=== PATIENT | female | born 1965 | race African-American/Black ===

== ENCOUNTER 2018-12-24 17:10 | Emergency (ER) | payer OTHER ==
[~2018-12-24] VITALS: Ht 172.7 cm; Wt 59.0 kg
--- NOTE | 2018-12-24 17:18 | NUR ---
CAME IN FOR DIARRHEA x 5 DAYS, RECENTLY W SMALL INTESTINAL BACTERIAL GROWTH (06/2018), SENT BY PMD FOR STOOL EXAM (POSSIBLE C.DIFFICILE) ALSO FOR CBC, CMP, CRP AND MAG. TO ER BED 2, HOOKED TO MONITOR, CHANGED TO GOWN, PROVIDED W WARM BLANKET, AWAITING MD CARRASQUILLO.
--- NOTE | 2018-12-24 17:32 | NUR ---
MIGUEL ANGEL [place] AT BEDSIDE
--- NOTE | 2018-12-24 17:36 | NUR ---
NS 1L STARTED AT 173-END TIME 1834, ORDERED VERBALLY
[2018-12-24 17:50] LABS: BASOPHILS % (AUTO) 0.2 % (0.0-2.0); HEMATOCRIT 36 % (33-45); HEMOGLOBIN 11.3 g/dL (11.5-14.8); LYMPHOCYTES # (AUTO) 0.8 /CMM (0.8-4.8); LYMPHOCYTES % (AUTO) 10.5 % (20.0-44.0); MEAN CORPUSCULAR HGB CONC 32 g/dl (31.0-36.0); MEAN CORPUSCULAR VOLUME 77 fL (82-100); MONOCYTES # (AUTO) 0.5 /CMM (0.1-1.30); MONOCYTES % (AUTO) 6.8 % (2.0-12.0); NEUTROPHILS # (AUTO) 6.5 /CMM (1.8-8.9); NEUTROPHILS % (AUTO) 82.5 % (43.0-81.0); PLATELET COUNT (AUTO) 270 /CMM (150-450); RED BLOOD CELL COUNT(AUTO) 4.62 MIL/uL (4.0-5.2); WHITE BLOOD COUNT (AUTO) 7.9 K/uL (4.3-11.0)
[2018-12-24] MEDS ORDERED: IV NS 0.9% 1,000 ML BAG IV ONE (18:00)
[2018-12-24 18:03] LABS: C-REACTIVE PROTEIN 8.9 mg/dL (0.0-0.9)
[2018-12-24 18:04] LABS: ALBUMIN 3.2 g/dL (3.4-5.0); BILIRUBIN,TOTAL 0.5 mg/dL (0.2-1.0); CALCIUM, SERUM 8.3 mg/dL (8.5-10.1); CREATININE 0.9 mg/dL (0.6-1.3); POTASSIUM 3.8 mmol/L (3.5-5.1); TOTAL PROTEIN, SERUM 7.6 g/dL (6.4-8.2)
[2018-12-24 18:33] LABS: MAGNESIUM 1.6 mg/dL (1.8-2.4)
--- NOTE | 2018-12-24 18:55 | NUR ---
STOOL SAMPLE SENT TO LAB
[2018-12-24] MEDS ORDERED: Magnesium 1GM/D5W 100ML PREMIX 100 ML IV ONE (18:58)
[2018-12-24] MEDS ORDERED: Magnesium 1 GM/2 ML VIAL IV ONE (19:00)
[2018-12-24] MEDS: MGSO4/D5W 100 ML IV SCH ×2 (19:06→19:07)
--- NOTE | 2018-12-24 19:28 | NUR ---
REPORT GIVEN TO JEMIMA MELENDREZ FOR [facility]
[2018-12-24 20:19] VITALS: BP 112/67
== END 2018-12-24 20:20 | disposition home or self-care (01) ==
LOC: ER 17:14
DX: R19.7 Diarrhea, unspecified (principal); R00.0 Tachycardia, unspecified; Z98.890 Other specified postprocedural states
CPT/HCPCS: 36415; 80048; 80076; 83735; 85025; 86140; 87015; 87045; 87427 ×3; 87493; 89055; 96361; 96365; 99283; J3475; J7030 ×2